=== PATIENT | female | born 1945 | race Caucasian/White ===

== ENCOUNTER 2017-03-11 17:47 | Inpatient (IN) | payer MEDICARE, OTHER ==
[~2017-03-11] VITALS: Ht 152.4 cm; Wt 42.8 kg
[2017-03-11] MEDS ORDERED: BENA20TA2 PO (18:02)
[2017-03-11] MEDS ORDERED: ASPI325T4 PO (18:02)
[2017-03-11] MEDS ORDERED: SODIUM CHLORIDE FLUSH 10ML SYR IVF ONE (18:30)
[2017-03-11 19:02] LABS: BLOOD UREA NITROGEN 25 mg/dL (7-18)
[2017-03-11 19:06] LABS: IS PT STATUS REG ER OR PRE ER? YES
[2017-03-11] MEDS ORDERED: HEPARIN 5,000 UNITS/ML, 1ML IV PRN (20:00)
[2017-03-11] MEDS ORDERED: HEPARIN 5,000 UNITS/ML, 1ML IV ONE (20:00)
[2017-03-11] MEDS ORDERED: HEPARIN 25,000 UNITS/500ML PMX 500 ML IV PRN (20:00)
[2017-03-11] MEDS ORDERED: METOPROLOL TARTRATE 25 MG TABLET PO ONE (20:00)
[2017-03-11] MEDS ORDERED: HEPARIN 5,000 UNITS/ML, 1ML ONE (20:07)
[2017-03-11] MEDS ORDERED: HEPARIN 25,000 UNITS/500ML PMX 500 ML ONE (20:08)
[2017-03-11] MEDS ORDERED: SODIUM CHLORIDE FLUSH 10ML SYR IVF PRN (20:30)
[2017-03-11] MEDS ORDERED: DOCUSATE 100 MG CAPSULE PO PRN (21:30)
[2017-03-11] MEDS ORDERED: POLYETHYLENE GLYCOL 17 GM PACKET PO PRN (21:30)
[2017-03-11] MEDS ORDERED: BISACODYL 10 MG SUPP PR PRN (21:30)
[2017-03-11] MEDS ORDERED: MORPHINE SULFATE 4 MG/ML, 1ML IVPush PRN (21:30)
[2017-03-11] MEDS ORDERED: ONDANSETRON 2MG/ML, 2ML IVP PRN (21:30)
[2017-03-11] MEDS ORDERED: HYDROcodone/APAP 5/325 TABLET PO PRN (21:30)
[2017-03-11 21:53] VITALS: BP 135/72
[2017-03-11 23:46] LABS: IS PT STATUS REG ER OR PRE ER? NO
[2017-03-12 02:30] VITALS: BP 123/84
[2017-03-12 03:03] LABS: BLOOD UREA NITROGEN 19 mg/dL (7-18)
[2017-03-12 03:08] LABS: ASPARTATE AMINO TRANSFERASE 29 U/L (15-37)
[2017-03-12 03:11] LABS: IS PT STATUS REG ER OR PRE ER? NO
[2017-03-12 06:53] VITALS: BP 124/67
[2017-03-12 09:44] LABS: IS PT STATUS REG ER OR PRE ER? NO
[2017-03-12] MEDS ORDERED: SODIUM CHLORIDE 0.9% 1,000 ML IV SCH (10:21)
[2017-03-12] MEDS ORDERED: BIVALIRUDIN 250 MG ONE (11:49)
[2017-03-12] MEDS ORDERED: TICAGRELOR 90 MG TABLET ONE (11:49)
[2017-03-12] MEDS ORDERED: HEPARIN 1,000 UNITS/ML, 10ML ONE (11:49)
[2017-03-12] MEDS ORDERED: FENTANYL PF 100 MCG/2ML ONE (11:49)
[2017-03-12] MEDS ORDERED: MIDAZOLAM 1 MG/ML, 5ML ONE (11:49)
[2017-03-12] MEDS ORDERED: VERAPAMIL 2.5 MG/ML, 2ML ONE (11:49)
[2017-03-12] MEDS ORDERED: NITROGLYCERIN 5 MG/ML, 10ML ONE (11:49)
[2017-03-12] MEDS ORDERED: LIDOCAINE 2%, 20ML ONE (11:49)
[2017-03-12 13:27] VITALS: BP 100/64
[2017-03-12] MEDS: ACETAMINOPHEN 325 MG TABLET PO PRN ×2 (15:04→20:13)
[2017-03-12 19:20] VITALS: BP 105/63
[2017-03-12] MEDS ORDERED: BENAZEPRIL 20 MG TABLET PO SCH ×2 (21:00)
[2017-03-13] MEDS: ACETAMINOPHEN 325 MG TABLET PO PRN (01:14)
[2017-03-13 01:45] VITALS: BP 118/67
[2017-03-13 06:20] LABS: BLOOD UREA NITROGEN 10 mg/dL (7-18)
[2017-03-13 07:15] VITALS: BP 125/72
[2017-03-13] MEDS ORDERED: BENA10TA2 PO (09:42)
[2017-03-13] MEDS ORDERED: METO25TA35 PO (09:42)
[2017-03-13] MEDS ORDERED: ASPIRIN 325 MG TABLET EC PO ONE (11:00)
[2017-03-13 14:28] VITALS: BP 125/72
[2017-03-13] MEDS ORDERED: METOPROLOL TARTRATE 25 MG TABLET PO SCH (18:00)
[2017-03-13] MEDS ORDERED: BENAZEPRIL 10 MG TABLET PO SCH (21:00)
== END 2017-03-13 14:00 | disposition home or self-care (01) | DRG 280 ==
LOC: ED 18:30 → EDIP 20:06 → 5SO 21:30 → DCLOUNGE 03-13 13:45
PROVIDERS: ADMIT Internal Medicine
PROC: 4A023N7 Measurement of Cardiac Sampling and Pressure, Left Heart, Percutaneous Approach (ICD-10-PCS; principal; 2017-03-12)
PROC: B2111ZZ Fluoroscopy of Multiple Coronary Arteries using Low Osmolar Contrast (ICD-10-PCS; 2017-03-12)
PROC: B2151ZZ Fluoroscopy of Left Heart using Low Osmolar Contrast (ICD-10-PCS; 2017-03-12)
DX: I21.4 Non-ST elevation (NSTEMI) myocardial infarction (principal); I50.21 Acute systolic (congestive) heart failure; I51.81 Takotsubo syndrome; I11.0 Hypertensive heart disease with heart failure; I49.3 Ventricular premature depolarization; Z82.49 Family history of ischemic heart disease and other diseases of the circulatory system; Z82.5 Family history of asthma and other chronic lower respiratory diseases; Z90.49 Acquired absence of other specified parts of digestive tract
CPT/HCPCS: 36415; 71010; 80048; 80053; 80061; 82040; 83735; 84439; 84443; 84484; 85025; 85520; 85610; 85730; 93005; 93306; 93458; 96374; C1894; J0583; J1644; J2250; J2405; J3010; J3490; J7030; Q9967

== ENCOUNTER 2020-04-06 17:32 | Emergency (ER) | payer MEDICARE, OTHER ==
[~2020-04-06] VITALS: Ht 152.4 cm; Wt 45.4 kg
[~2020-04-06 17:32] MED LIST: ASPI325T17 PO; BENA10TA59 PO; BENA20TA54 PO; METO25TA35 PO
[2020-04-06] MEDS ORDERED: SODIUM CHLORIDE FLUSH 10ML SYR IVF ONE (18:30)
[2020-04-06 18:56] LABS: LYMPHOCYTES % (AUTO) 10 % (22-44); MD NO; MEAN CORPUSCULAR VOLUME 85.8 fL (80-100)
[2020-04-06 18:59] LABS: MICROSCOPIC NOT IND
[2020-04-06 19:07] LABS: ALBUMIN 4.3 g/dL (3.4-5.0); ANION GAP 8 mmol/L (5-15); CALCIUM 9.9 mg/dL (8.5-10.1); CHLORIDE 110 mmol/L (98-107)
[2020-04-06 19:12] LABS: ALANINE AMINOTRANSFERASE 33 U/L (12-78); ALKALINE PHOSPHATASE 77 U/L (45-117); BILIRUBIN,TOTAL 1.1 mg/dL (0.2-1.0); TOTAL PROTEIN 8.3 g/dL (6.4-8.2); TROPONIN I < 0.015 ng/mL (0.000-0.045)
[2020-04-06] MEDS ORDERED: ONDANSETRON ODT 4 MG ONE (20:29)
[2020-04-06] MEDS ORDERED: ONDANSETRON ODT 4 MG PO ONE (20:30)
--- NOTE | 2020-04-06 20:35 | NUR ---
PT MEDICATED PER MAR
[2020-04-06 20:41] LABS: BASOPHILS # (AUTO) 0.01 x10^3/uL (0-0.1); BASOPHILS % (AUTO) 0 % (0-1); EOSINOPHILS % (AUTO) 0 % (1-7); LYMPHOCYTES # (AUTO) 0.86 x10^3/uL (1-3.4); MEAN CORPUSCULAR HEMOGLOBIN 28.1 pg (27.0-34.8); MEAN CORPUSCULAR HGB CONC 32.7 g/dL (32.4-35.8); MEAN PLATELET VOLUME 8.5 fL (7.4-10.4); MONOCYTES # (AUTO) 0.22 x10^3/uL (0.2-0.8); MONOCYTES % (AUTO) 3 % (2-9); NEUTROPHILS # (AUTO) 7.78 x10^3/uL (1.8-6.8); NEUTROPHILS % (AUTO) 88 % (42-75); PLATELET COUNT 275 x10^3/uL (130-400); RED BLOOD COUNT 4.95 x10^6/uL (3.82-5.3); RED CELL DISTRIBUTION WIDTH 14.5 % (9.6-15.2)
[2020-04-06] MEDS ORDERED: PROMETHAZINE 25 MG/ML, 1ML ONE (21:13)
--- NOTE | 2020-04-06 21:29 | NUR ---
PT STILL NAUSEOUS AND VOMITTING. PT MEDICATED PER JAN. PT TO CT AT THIS TIME.
[2020-04-06] MEDS ORDERED: PROMETHAZINE 25 MG/ML, 1ML IM ONE (21:30)
[2020-04-06] MEDS ORDERED: OMNIPAQUE 350 MG/ML, 100ML BOTTLE ONE (21:47)
--- NOTE | 2020-04-06 22:20 | NUR ---
PT STATES FEELING MUCH BETTER. AWARE OF PENDING CT. WILL CTM. DENIES ANY NEEDS. FAMILY AT BS.
[2020-04-06] MEDS ORDERED: GLUCAGON 1 MG IM ONE (23:00)
[2020-04-06] MEDS ORDERED: GLUCAGON 1 MG ONE (23:00)
[2020-04-06] MEDS ORDERED: ONDANSETRON 2MG/ML, 2ML ONE (23:00)
[2020-04-06] MEDS ORDERED: ONDANSETRON 2MG/ML, 2ML IVPush ONE (23:00)
[2020-04-06 23:29] VITALS: BP 146/84
--- NOTE | 2020-04-06 23:41 | NUR ---
PT STARTED ON PO CHALLANGE C SPRITE. NO RELIEF, CONTINUES TO VOMIT. GIVEN MEDS PER MAR. VSS. FRIEND AT BS. DENIES ANY NEEDS. WILL CTM.
--- NOTE | 2020-04-07 00:05 | NUR ---
PT NOT TOLERTING 2ND PO CHALLANGE. WILL CTM.
[2020-04-07] MEDS ORDERED: PROPOFOL 10 MG/ML, 20ML IVPush ONE (00:30)
--- NOTE | 2020-04-07 00:36 | NUR ---
MT: GI DOCTOR AND IN SERVICE COORDINATOR AWARE AND ARE COMING IN
[2020-04-07] MEDS ORDERED: PROPOFOL 10 MG/ML, 20ML ONE (00:51)
--- NOTE | 2020-04-07 01:49 | NUR ---
SEE SEDATION PAPERWORK FOR NOTES & VS. PT TOLERATED WELL. A&OX4. STATES READY FOR DC. FRIEND, BETZY, AT BS TO DRIVE. AWARE OF PLAN TO DC SHORTLY.
== END 2020-04-07 02:12 | disposition home or self-care (01) ==
LOC: ED 19:13
DX: T18.128A Food in esophagus causing other injury, initial encounter (principal); N83.201 Unspecified ovarian cyst, right side; I10 Essential (primary) hypertension; I25.2 Old myocardial infarction; X58.XXXA Exposure to other specified factors, initial encounter; Y93.89 Activity, other specified; Y92.89 Other specified places as the place of occurrence of the external cause; Y99.8 Other external cause status
CPT/HCPCS: 36415; 43247; 71045; 74177; 80053; 81003; 83690; 84484; 85025; 93005; 96372; 96374; 99152; 99285; J1610; J2405; J2550; J2704; Q0162; Q9967